=== PATIENT | female | born 1995 | race Caucasian/White ===

== ENCOUNTER 2019-09-29 16:44 | Emergency (ER) | payer SELFPAY ==
[2019-09-29 16:45] VITALS: BP 127/80; PULSE 75; RESP 14; TEMP 36.6; O2SAT 100; BMI 24.9
--- NOTE | 2019-09-29 17:39 | ED.VIS.LOWEX ---
History of Present Illness Chief Complaint: Lower Extremity Injury Informant: Patient Onset: Days - 4 Context: Gradual Onset Timing: Continuous Quality of Pain: - - sore Location: right great toe Current Severity: Severe Maximum Severity: Severe Worsened by: walking, palpation Relieved by: leaving alone Associated Symptoms: Negative for: Parasthesia, Weakness, Loss of Funtion Narrative: Feels like he has an ingrown toenail that is now getting infected. Never had this before. Purulent discharge. No injury. No systemic symptoms or fevers. Not a diabetic or having any other medical problem history. Past Medical History - Allergies and Home Meds Allergies/Adverse Reactions: Allergies No Known Allergies Allergy (Verified 09/29/19 16:45) Primary Care Physician: Joaquina Farooq DPM [STAFF PHYSICIAN] - 3-5 Days Past Medical History: None Lives: Alone Smoking Status: Unknown if ever smoked Review of Systems General: Denies: Chills, Fever, Sweats Musculoskeletal: Reports: Extremity Pain. Denies: Swelling Skin: Reports: Abscess, Wounds. Denies: Rash Physical Exam Vital Signs/Narrative: Vital Signs Temp Pulse Resp BP Pulse Ox 09/29/19 16:45 97.9 F 75 14 127/80 H 100 Inital Vital Signs reviewed: Yes - Extremity Exam Right Toe: - - At the peroneal aspect of the great right toenail, there is a small paronychia, there is purulent discharge able to be expressed and small amounts. It is mildly swollen, there is no pointing, there is no felon at the pad. Lateral aspect of the distal toe is tender. The nail is relatively small compared to the size of the toe, it may be ingrown, but looks similar at the tibial aspect except for the lack of infection there. All of the other toes and foot are normal-appearing, there is no lymphangitis. General: Well nourished, Well developed, - - nad Skin: Normal color, No rash, - - Erythema and tenderness to the peroneal aspect of the right great toenail Neurological: Alert, Oriented x3, Cranial nerves II-XII grossly intact, Normal Strength, Normal Sensation, Normal Gait Psychological: Normal affect, Normal Mood Diagnostic/Tx/Re-eval - Medical Decision Making See the procedure note for incision and drainage and excision of the ingrown toenail, a very small sliver of it was removed. I do not think she needs systemic antibiotics for this, it is very small limited paronychia that should be adequately treated topically. See the discharge instructions for details, she was referred to podiatry. Procedures Procedure(s): Paronychia incision and drainage --prepped with isopropanol and performed digital block of the right great toe with a total of 6 cc of plain 1% lidocaine. Good anesthesia was obtained. Prepped paronychia with chlorhexidine, incised along the side of the nail with a #11 blade and probed the cavity bluntly and gently with scissors, small amount of purulent material was expressed and a small amount of bleeding. The cavity is limited and does not protrude to the plantar aspect of the toe, or to the base of the nail/cuticle, or beneath the nail. Ingrown toenail excision --while anesthetized as above, the edge of the peroneal aspect of the right great toenail was excised and discarded. The nailbed was left intact. ED Disposition - Plan for ED Patient: Disposition: Home or Assisted Living Diagnosis: Paronychia of great toe, right, Ingrown toenail of right foot with infection Instructions: Paronychia Referrals: Joaquina Farooq DPM [STAFF PHYSICIAN] - 3-5 Days Additional Instructions: Perform hot-warm soapy soaks to the affected area 2-3 times daily until no discharge or bleeding. Pat dry after 15 minutes or so, and place a fresh clean dressing with antibiotic ointment. If getting worse or seeing red streaking up your foot/leg, return to ER or follow-up with the b2b sales consultant to whom you are referred.
[2019-09-29] MEDS: Smz/Tmp Ds Tablet 1 TABLET PO (17:45)
[2019-09-29] MEDS: Cephalexin 500 MG Capsule PO (17:45)
[2019-09-29 20:12] VITALS: RESP 18
== END 2019-09-29 20:15 | disposition home or self-care (01) ==
PROVIDERS: Emergency Provider Emergency Medicine
DX: L60.0 Ingrowing nail (principal); L03.031 Cellulitis of right toe
CPT/HCPCS: 10060; 11750; 99283

== ENCOUNTER 2019-10-18 07:42 | Emergency (ER) | payer SELFPAY ==
[2019-10-18 07:42] VITALS: BP 129/94; PULSE 92; RESP 16; TEMP 36.6; O2SAT 99; BMI 25.3
--- NOTE | 2019-10-18 07:51 | ED.VIS.GEN ---
History of Present Illness Chief Complaint: Cellulitis Detail of Chief Complaint: Right eyelid swelling, dental pain Onset: Yesterday Context: Sudden Onset Timing: Continuous Quality: Pain Location: Right side of face and right jaw Current Severity: Mild Maximum Severity: Severe Worsened by: Opening closing her mouth, applying pressure to her face Relieved by: Nothing Associated Symptoms: No ocular symptoms, no constitutional symptoms, no trismus Narrative: Patient is a 24-year-old female who presents because of dental pain and swelling of her face and right upper eyelid. States symptoms started yesterday. She denies fever, chills night sweats. She denies blurred vision, change in vision or double vision. She denies photophobia. She denies pain with movement of her eye. She denies rhinorrhea, congestion or postnasal drainage. She denies sore throat. She does complain of dental pain. She states she has several teeth that are painful. She does have intolerance to cold. She denies difficulty opening or closing her mouth completely. She denies change in voice. There is no history rheumatic fever, heart murmur, SBE or being immune suppressed. Eyelashes were not matted together this morning nor did she have any drainage. Prior similar symptoms: No Recent Illness/Hospitalization: No - Past Medical History (1) No significant past medical history Status: Acute Past Medical History - Allergies and Home Meds Allergies/Adverse Reactions: Allergies No Known Allergies Allergy (Verified 10/18/19 07:46) Primary Care Physician: Care Physician,No Primary [Primary Care Provider] - Prior records reviewed: No Past Medical History: None Surgical History: no surgical history Lives: Alone Smoking Status: Unknown if ever smoked Alcohol: None Drugs: None Review of Systems General: Denies: Chills, Fever, Subjective, Sweats Eyes: Denies: Visual changes - bilaterally, Blurred Vision - bilaterally, Diplopia ENT: Denies: Bilateral ear pain, Rhinorrhea, Sore throat Cardiovascular: Denies: Chest pain, Palpitations Respiratory: Denies: Dyspnea, Cough, Dyspnea on exertion Gastrointestinal: Denies: Nausea, Vomiting Musculoskeletal: Denies: Myalgias, Arthralgias, Neck pain, Back pain Skin: Denies: Rash, Wounds Neurological: Denies: Headache, Weakness Physical Exam Vital Signs/Narrative: Vital Signs Temp Pulse Resp BP Pulse Ox 10/18/19 07:42 97.9 F 92 16 129/94 H 99 Inital Vital Signs reviewed: Yes General: Well nourished, Well developed, No Acute Distress Head: Normocephalic, Atraumatic, - - Face is asymmetric. There is swelling of the right upper eyelid and right maxillary region. Eyes: Perrl, EOMI, - - Conjunctive is injected on the right. The upper eyelid is edematous erythematous and findings are consistent with hordeolum.. Negative for: Pale conjunctiva, Scleral icterus ENT: Moist mucous membranes, No rhinorrhea, TM's clear, - - No evidence of Lucho's angina. There is no trismus.. Negative for: Nasal congestion, Sinus tenderness Neck: Supple, Nontender, No lymphadenopathy, No JVD, - - Trachea is midline. There is no inspiratory expiratory stridor. Cardiovascular: Regular rate, Regular rhythm, No murmurs, Normal S1, Normal S2 Respiratory: No distress, CTA bilaterally Skin: No Trauma, Rash - There is slight darkening erythema of the right upper eyelid.. Negative for: Normal color, No rash, Cyanosis, Diaphoresis, Jaundice Neurological: Alert, Oriented x3, Cranial nerves II-XII grossly intact, Normal Strength, Normal Sensation Psychological: Normal affect, Normal Mood Diagnostic/Tx/Re-eval - Medical Decision Making Patient has hordeolum. There is evidence of conjunctivitis. Will treat with ophthalmic antibiotic medication. She was treated with NSAID and penicillin for her dental pain. There is evidence of dental caries. She was informed that she needs to see a dentist to have dental x-rays. Should she is uninsured she was referred to the [facility] ED Disposition - Plan for ED Patient: Disposition: Home or Assisted Living Diagnosis: Hordeolum internum of right upper eyelid, Pain due to dental caries Instructions: When Your Child Has a Stye, Sty, Dental Pain Prescriptions: Ciprofloxacin 0.3% [Ciloxan] 1 drp RIGHT EYE Q2H #1 bottle Transmission Status: Pending to [facility] Ibuprofen [Ibu] 800 mg PO TID #15 tab Transmission Status: Pending to [facility] Penicillin V Potassium 500 mg PO 4X/DAY #40 tab Transmission Status: Pending to [facility] Referrals: Care Physician,No Primary [Primary Care Provider] - Lakesha Carlson [NON-STAFF] - 5-7 Days
[2019-10-18 08:03] VITALS: BP 129/94; PULSE 92; RESP 16; TEMP 36.6; O2SAT 99
[2019-10-18] MEDS: Acetaminophen 325 MG Tablet 1000 MG PO (08:09)
[2019-10-18] MEDS: Ibuprofen 400 MG Tablet 800 MG PO (08:10)
[2019-10-18] MEDS: Penicillin Vk 250 MG Tablet 500 MG PO (08:10)
== END 2019-10-18 08:24 | disposition home or self-care (01) ==
PROVIDERS: Emergency Provider Emergency Medicine
DX: H00.021 Hordeolum internum right upper eyelid (principal); K02.9 Dental caries, unspecified
CPT/HCPCS: 99284

== ENCOUNTER 2020-12-27 14:35 | Emergency (ER) | payer MEDICAID, SELFPAY ==
[2020-12-27 14:36] VITALS: BP 123/89; PULSE 91; RESP 16; TEMP 36; O2SAT 100; BMI 27.2
--- NOTE | 2020-12-27 15:19 | CT_ITS ---
STUDY: CT BRAIN WITHOUT CONTRAST REASON FOR EXAM: Female, 25 years old. head injury, headache RADIATION DOSAGE (If Supplied By Facility): CTDIvol = ( 38.43 ) mGy, DLP = ( 669.46 ) mGycm TECHNIQUE: Transaxial CT imaging of the brain was performed without administration of intravenous contrast material. Individualized dose optimization techniques were used for this CT. COMPARISON: No relevant priors. FINDINGS: Normal soft tissue structures. Normal calvarium. Normal size ventricles and extra-axial spaces for the patient''s age. Normal white matter tracts of the cerebral hemispheres. Normal basal ganglia and thalami. Normal brainstem. Normal cerebellum. There is no intracranial hemorrhage. There are no findings of an acute ischemic infarction. Normal visualized paranasal sinuses. CT/Brain/Head without Contrast IMPRESSION: Normal unenhanced CT scan of the brain. Electronically Signed: Mic Negrete MD at 16:37 EDT Tel , Service support ,
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
== END 2020-12-27 16:54 | disposition home or self-care (01) ==
PROVIDERS: Emergency Provider Emergency Medicine
DX: S06.0X9A Concussion with loss of consciousness of unspecified duration, initial encounter (principal); S63.634A Sprain of interphalangeal joint of right ring finger, initial encounter; Y04.0XXA Assault by unarmed brawl or fight, initial encounter; Y93.89 Activity, other specified; Y92.89 Other specified places as the place of occurrence of the external cause; Y99.9 Unspecified external cause status
CPT/HCPCS: 70450; 73140; 99282; A4216

== ENCOUNTER → 2021-04-27 13:49 | Outpatient (CLI) | payer MEDICAID, SELFPAY ==
[2021-04-27 14:39] LABS: AST(SGOT) 17 U/L (15-37); Alanine Aminotransfer ALT/SGPT 20 U/L (13-56); Albumin, Serum 3.7 g/dL (3.2-5.0); Alkaline Phosphatase 81 U/L (45-117); Bilirubin, Direct 0.13 mg/dL (0.00-0.30); Globulin 4.2 g/dL (2.2-4.2); Protein, Total 7.9 g/dL (6.4-8.2)
[2021-04-27 15:24] LABS: Hepatitis B Surface Antigen Non-Reactive (Nonreactive); Hepatitis C Antibody Non-Reactive (Nonreactive)
== END ==
PROVIDERS: PCP Nurse Practitioner Family
DX: R63.0 Anorexia (principal); R53.81 Other malaise; R11.0 Nausea
CPT/HCPCS: 36415; 80076; 86803; 87340

== ENCOUNTER 2021-06-19 09:54 | Emergency (ER) | payer MEDICAID, SELFPAY ==
[2021-06-19 09:55] VITALS: BP 106/82; PULSE 116; RESP 22; TEMP 36.6; O2SAT 93; BMI 31.1
--- NOTE | 2021-06-19 10:20 | EKG12_ITS ---
Test Reason : SOB Blood Pressure : / mmHG Vent. Rate : 092 BPM Atrial Rate : 092 BPM P-R Int : 132 ms QRS Dur : 096 ms QT Int : 346 ms P-R-T Axes : 051 004 012 degrees QTc Int : 427 ms Normal sinus rhythm Normal ECG Confirmed by JACK CASTELLON, AFSHAN ([id number]), story editor ANTOINETTE RADER ([id number]) on 06/20/2021 2:05:27 PM Referred By: SORIN Confirmed By:AFSHAN SANTIAGO MD
--- NOTE | 2021-06-19 10:29 | EX.ED.DYSGE1 ---
HPI History of Present Illness Chief Complaint: Weakness Informant: patient Narrative Narrative: Patient presents with weakness. Covid symptoms starting least 2 weeks ago. Reports headache myalgia's cough, intermittent fevers. Denies loss of taste or smell. Diarrhea a week ago. Tolerating oral fluids. Over the past 4 days increasing cough. States that a couple cough induced syncopal episodes. No chest pains. No dyspnea. Patient nonvaccinated. No Covid infections in the past. Denies sick contacts however states her child is currently also sick. History of anxiety depression. Prior similar symptoms: No PFSH PFSH Home Medications dexamethasone 6 mg PO DAILY #9 tab 06/19/21 [Rx Last Taken Unknown] trazodone 50 mg PO QHS 06/19/21 [History Last Taken Unknown] Allergy/AdvReac Type Severity Reaction Status Date / Time No Known Allergies Allergy Verified 06/19/21 09:55 Surgical History History of tonsillectomy History of tubal ligation Social History Smoking Status: Never smoker ROS ROS ED Constitutional Constitutional ED: Reports fever(s); Denies chills or sweats Eyes Eyes: Denies change in vision ENT ENT ED: Denies dysphagia or sore throat Cardiovascular Cardiovascular: Denies chest pain, leg edema, palpitations or racing heartbeat Respiratory/Chest Respiratory/Chest: Reports cough; Denies dyspnea on exertion Gastrointestinal Gastrointestinal: Reports diarrhea; Denies abdominal pain, nausea or vomiting Genitourinary Genitourinary ED: Denies dysuria, hematuria or urinary frequency Musculoskeletal Musculoskeletal: Reports myalgias; Denies back pain, extremity pain or neck pain Integumentary Denies rash or wounds Neurologic Neurologic: Reports headache(s) and weakness; Denies paresthesias EXAM Physical Exam Const Vital Signs: 06/19/21 09:55 06/19/21 10:34 06/19/21 13:01 Temperature 97.9 F Temperature Source Temporal Pulse Rate 116 H 113 H Respiratory Rate 22 H 18 Respiratory Effort Normal Respiratory Pattern Normal Blood Pressure 106/82 H Blood Pressure Mean 90 Pulse Ox 93 97 Oxygen Delivery Method Room Air Positive well nourished and well developed General Appearance ED: well developed and NAD HEENT HEENT Narrative: Mild dry mucosal membranes normocephalic and atraumatic Eyes PERRL, EOMs intact bilaterally and conjunctivae normal General Eye ED: Yes normal appearance of both eyes Neck no lymphadenopathy and supple Neck Narrative: No meningismus General: Negative for tenderness Chest Wall Chest: Negative for tenderness Resp normal respiratory effort and normal air movement Effort and Inspection: symmetric chest movement; Negative for respiratory distress Cardio regular rate and no murmurs Rate: tachycardic Peripheral Pulses: pulses 2+ throughout GI normal to inspection, nondistended, normoactive bowel sounds and non-tender Palpation: Negative for guarding or rebound tenderness present Back/Spine no CVA tenderness and no thoracic nor lumbar tenderness Extremity normal to inspection General Extremety ED: Negative for edema or tenderness General Extremity: Negative for edema Neuro oriented x3, CN's II-XII intact bilaterally and no sensory deficits noted Sensorium / Orientation: awake and alert Skin no rashes or lesions noted and no wounds MDM MDM MDM Narrative Medical decision making narrative: Patient history concerning for Covid. She is tachycardic on exam with dry mucosal membranes. Pulse ox 93% on arrival. Covid testing positive. Labs white count 4.2 hemoglobin 13. Potassium 3.3. Creatinine 0.63. hCG negative. She is history noting cough induced syncope. Her EKG with nonspecific findings. Neurologically intact. Potassium was replaced orally due to her syncopal episode. Pulse ox 93% she was started on dexamethasone. She is 15 days and the symptoms she is not a candidate for antibiotic treatment. She was ambulated pulse ox remained 95 to 97%. Discussed with patient picking up pulse oximeter monitoring her pulse ox. Chest x-ray bilateral infiltrates consistent with her Covid infection. Return precautions discussed. All questions were answered. Patient is being discharged under pandemic conditions under declared global, national and state disaster activation, with limited medical resources. Patient and community understands this. Results discussed in layman's terms to the patient satisfaction. All questions answered in layman's terms. Patient understands importance of follow-up care as directed. Patient has been instructed to return to the ED immediately if new symptoms, problems, or questions occur. We mutually agree with the plan of disposition. The patient understand that they may call or return with any questions or concerns at any time. Lab Data Attestation: I reviewed the patient's lab results. Labs: Laboratory Results - last 24 hr 06/19/21 06/19/21 06/19/21 10:30 10:30 10:30 WBC 4.2 L RBC 4.38 Hgb 13.1 Hct 37.9 MCV 86.5 MCH 29.9 MCHC 34.6 RDW Std Deviation 41.1 RDW Coeff of Wen 13.1 Plt Count 209 MPV 9.0 Immature Gran % (Auto) 0.500 Neut % (Auto) 66.4 Lymph % (Auto) 27.9 [place] % (Auto) 5.2 Eos % (Auto) 0.0 Baso % (Auto) 0.0 Absolute Neuts (auto) 2.8 Absolute Lymphs (auto) 1.17 Nucleated RBC % 0 Sodium 138 Potassium 3.3 L Chloride 103 Carbon Dioxide 28.0 Anion Gap 7 BUN 13 Creatinine 0.63 Estim Creat Clear Calc 130.44 Est GFR (MDRD) Af Amer 145 Est GFR (MDRD) Non-Af 120 BUN/Creatinine Ratio 20.6 H Glucose 95 Calcium 8.6 Total Bilirubin 0.20 AST 44 H ALT 37 Alkaline Phosphatase 54 Total Protein 7.9 Albumin 3.1 L Globulin 4.8 H Albumin/Globulin Ratio 0.6 L Serum , Qual NEGATIVE Radiography Chest X-Ray - ED: 1 View, Read by ED Physician and Read by Radiologist Diagnostic Testing: Clinical Impression(s) from Imaging Studies Chest X-Ray 06/19/21 11:00 IMPRESSION: Bibasilar patchy airspace disease (potential early infection) Electronically Signed: Sanjay Villafana DO at 11:08 EST Tel , Service support , EKG Initial EKG: Attestation: I personally reviewed and interpreted this EKG as follows: Comments: Sinus rhythm 92, no ST changes. T wave inversion in leads III. Nonspecific. QTc 427. Discharge Plan Triage Chief Complaint: Weakness ED Provider: William Guzman Dx/Rx/DC Orders Clinical Impression: Pneumonia due to 2019-nCoV, Syncope, Acute hypokalemia Instructions: Coronavirus Disease 2019 (COVID-19): Caring for Yourself or Others, ED Fainting, Vagal Reaction Prescriptions: New dexamethasone 6 mg tablet 6 mg PO DAILY Qty: 9 RF: 0 No Action trazodone 50 mg tablet 50 mg PO QHS RF: 0 Primary Care Provider: Care Physician,No Primary Referrals: Melida Fonseca MD [STAFF PHYSICIAN] - 5-7 Days Care Physician,No Primary [Primary Care Provider] - Disposition Disposition: Home, Self Care
[2021-06-19] MEDS: 0.9% Normal Saline 1,000 ML 1000 ML IV (10:36)
--- NOTE | 2021-06-19 10:38 | NURSING ---
NO OLD EKGS
[2021-06-19 10:46] LABS: Absolute Lymphocyte Count 1.17 X10^3/uL (0.83-4.51); Absolute Neutrophil Count 2.8 X10^3/uL (2.0-7.7); Hematocrit 37.9 % (37-47); Hemoglobin 13.1 g/dL (12.0-15.0); Lymphocyte # 1.17 X10^3/ul (0.83-4.51); Lymphocyte % 27.9 % (19-41); Mean Corp Hgb Conc 34.6 g/dL (32-36); Mean Corpuscular Hgb 29.9 pg (27.0-32.0); Mean Corpuscular Volume 86.5 fL (81-99); Monocyte# 0.22 X10^3/uL; Monocyte% 5.2 % (0-10); NRBC Flagged by Analyzer 0 % (0-5); Neutrophil # 2.79 X10^3/uL (2.7-7.7); Neutrophil % 66.4 % (47-70); Platelet Count 209 K/mm3 (150-450); RBC Distribution Width CV 13.1 % (11.6-14.6); RBC Distribution Width SD 41.1 fl (35.1-43.9); Red Blood Count 4.38 M/mm3 (4.2-5.4); White Blood Count 4.2 K/mm3 (4.4-11.0)
--- NOTE | 2021-06-19 11:00 | RAD_ITS ---
STUDY: X-RAY CHEST REASON FOR EXAM: Female, 25 years old. cough TECHNIQUE: Single AP portable view of the chest. COMPARISON: None. FINDINGS: Cardiac silhouette unremarkable. Pulmonary vascularity unremarkable. Aorta unremarkable. Bibasilar patchy airspace disease. No pleural effusions. Upper abdomen unremarkable. Osseous structures intact. No pneumothorax. RAD/Chest 1 View (Portable) IMPRESSION: Bibasilar patchy airspace disease (potential early infection) Electronically Signed: Sanjay Villafana DO at 11:08 EST Tel , Service support ,
[2021-06-19 11:01] LABS: ALB/GLOB Ratio 0.6 RATIO (0.9-2.4); AST(SGOT) 44 U/L (15-37); Alanine Aminotransfer ALT/SGPT 37 U/L (13-56); Albumin, Serum 3.1 g/dL (3.2-5.0); Alkaline Phosphatase 54 U/L (45-117); Anion Gap 7 (5-15); BUN 13 mg/dL (7-18); BUN/Creat Ratio 20.6 RATIO (10-20); Calcium,Total 8.6 mg/dL (8.5-10.1); Chloride 103 mmol/L (98-107); Creatinine, Serum 0.63 mg/dL (0.55-1.02); EST Glomerular Filtration Rate 120 mL/min (>60); Est Glom Filt Rate - Afr Amer 145 mL/min (>60); Estimated Creatinine Clearance 130.44 ml/min; Globulin 4.8 g/dL (2.2-4.2); Glucose 95 mg/dL (74-106); Potassium 3.3 mmol/L (3.5-5.1); Protein, Total 7.9 g/dL (6.4-8.2); Sodium Level 138 mmol/L (136-145)
[2021-06-19 11:11] LABS: Internal QC Validated? YES +Cl - CLEAR BKGD
[2021-06-19 11:12] LABS: Pregnancy, Serum, hCG Quali. NEGATIVE Negative
[2021-06-19] MEDS: Potassium Chloride Oral Tablet 20 MEQ 40 MEQ PO (12:58)
[2021-06-19] MEDS: dexAMETHasone 4 MG Tablet 6 MG PO (12:58)
[2021-06-19 13:01] VITALS: PULSE 113; RESP 18; O2SAT 95; O2SAT 97
[2021-06-19 14:34] VITALS: BP 106/78; PULSE 94; RESP 22; O2SAT 96
--- NOTE | 2021-06-19 14:34 | ED.RN ---
THIS NURSE REVIEWED D/C INSTRUCTIONS WITH PT. PT VERBALIZED UNDERSTANDING OF INSTRUCTIONS. IV D/C. IV CATHETER INTACT. PT TOLERATED WELL. PT DENIES FURTHER NEEDS OR QUESTIONS AT THIS TIME. PT AMBULATES FROM ROOM ON OWN WITHOUT ASSISTANCE FROM STAFF
== END 2021-06-19 14:36 | disposition home or self-care (01) ==
PROVIDERS: Emergency Provider Emergency Medicine
DX: U07.1 COVID-19 (principal); J12.82 Pneumonia due to coronavirus disease 2019; E87.6 Hypokalemia; R55 Syncope and collapse; F41.8 Other specified anxiety disorders; Z79.899 Other long term (current) drug therapy
CPT/HCPCS: 71045; 80053; 84703; 85025; 87426; 93005; 96360; 96361; 99283; J7030

== ENCOUNTER 2024-09-15 08:55 | Emergency (ER) | payer MEDICAID, SELFPAY ==
[2024-09-15 08:56] VITALS: BP 132/93; PULSE 96; RESP 16; TEMP 36.9; O2SAT 100; BMI 31.3
--- NOTE | 2024-09-15 09:15 | EX.ED.DYSGE1 ---
HPI History of Present Illness Chief Complaint: Fever Informant: patient Onset/Context/Timing Onset: Today Context: Gradual Onset Timing: Continuous Quality: Aching Location: Generalized Worsened by: Nothing Relieved by: Nothing Narrative Narrative: Patient presents with fever, cough, congestion, and bodyaches that has been getting worse over the past 3 days. Patient states she feels achy all over. Patient admits to a fever of 100.1 at home. Patient admits to sore throat and rhinorrhea. Patient admits to a cough but denies any sputum. Patient denies any nausea or vomiting. Patient denies any dysuria or hematuria. Patient states other family members have been diagnosed with influenza recently. PFSH PFS Home Medications ?Medication ?Instructions ?Recorded ?Last Taken ?Type dexamethasone 6 mg tablet 6 mg PO DAILY #9 tabs 06/19/21 Unknown Rx trazodone 50 mg tablet 50 mg PO QHS 06/19/21 Unknown History Allergy/AdvReac Type Severity Reaction Status Date / Time No Known Allergies Allergy Verified 06/19/21 09:55 Surgical History History of tubal ligation History of tonsillectomy Social History Smoking Status: Never smoker ROS ROS ED Constitutional Constitutional ED: Reports fever(s); Denies chills Eyes Eyes: Denies blurry vision or change in vision ENT ENT ED: Reports rhinorrhea and sore throat Cardiovascular Cardiovascular: Denies chest pain or palpitations Respiratory/Chest Respiratory/Chest: Reports cough; Denies dyspnea Gastrointestinal Gastrointestinal: Reports abdominal pain; Denies nausea or vomiting Genitourinary Genitourinary ED: Denies dysuria or hematuria Musculoskeletal Musculoskeletal: Denies back pain or neck pain Integumentary Denies abscess or rash Neurologic Neurologic: Denies headache(s) or weakness Allergic/Immunologic Allergic/Immunologic ED: Denies mouth swelling or urticaria EXAM Physical Exam Const Vital Signs: 09/15/24 08:56 Temperature 98.5 F Temperature Source Oral Pulse Rate 96 Respiratory Rate 16 Blood Pressure 132/93 H Blood Pressure Mean 106 Pulse Ox 100 Oxygen Delivery Method Room Air Positive well nourished and well developed General Appearance ED: well developed and NAD HEENT Reports moist mucous membranes Neck supple and no JVD Resp normal respiratory effort and clear to auscultation bilaterally GI non-tender and non-distended Palpation: soft Neuro oriented x3, CN's II-XII intact bilaterally and no sensory deficits noted Sensorium / Orientation: alert Motor Exam: strength 5/5 throughout Psych mental status grossly normal MDM MDM MDM Narrative Medical decision making narrative: Differential diagnosis includes pneumonia, bronchitis, and viral upper respiratory infection. Chest x-ray will be obtained to assess for pneumonia and bronchitis. COVID-19, influenza, and RSV PCR will be obtained to assess for viral illness. Lab Data Lab results narrative: COVID-19 PCR was reviewed and was negative. Influenza PCR was reviewed and was negative for influenza A and influenza B. RSV PCR was reviewed and was negative. Radiography Chest X-Ray - ED: 2 View, Read by ED Physician, Read by Radiologist and No Acute Disease Diagnostic Testing: PA and lateral chest x-ray was obtained. There are 2 views. On my independent interpretation, lung kaminski are clear. There is normal cardiac silhouette. Bony thorax is normal. There is no acute process noted. Radiologist also interpreted the x-ray and agrees. Treatment and Re-Evaluation :: Patient was advised of her findings. Patient was advised that this is most likely a viral upper respiratory infection. Patient was instructed to drink plenty of fluids. Patient was instructed to take Tylenol or ibuprofen as needed for any pain or fevers. Patient was instructed to follow-up with her primary care physician in 5 to 7 days. Patient understood and was agreeable with plan. All questions were answered. Discharge Plan Triage Chief Complaint: Fever ED Provider: Sanjay Oshea Dx/Rx/DC Orders Clinical Impression: Viral upper respiratory tract infection, Nicotine vapor product user Instructions: ED URI, Viral, No Abx (Adult) Prescriptions: No Action trazodone 50 mg tablet 50 mg PO QHS dexamethasone 6 mg tablet 6 mg PO DAILY Qty: 9 0RF Primary Care Provider: Care Physician,No Primary Referrals: Care Physician,No Primary [Primary Care Provider] - Print Language: Kyrgyz Disposition Disposition: Home, Self Care
--- NOTE | 2024-09-15 09:40 | RAD_ITS ---
PROCEDURE: CHEST PA AND LATERAL REASON FOR EXAM: Cough. TECHNIQUE: Frontal and lateral views of the chest. COMPARISON: Comparison is made with prior study dated June 19, 2021. FINDINGS: Pectus excavatum deformity. The heart size is normal. The mediastinal contour is unremarkable. The lungs are clear. The bones are unremarkable. RAD/Chest PA and Lateral IMPRESSION: NEGATIVE CHEST Reading Location: [facility]
[2024-09-15 10:56] VITALS: BP 120/78; PULSE 87; RESP 16; TEMP 36.8; O2SAT 98
--- NOTE | 2024-09-15 14:15 | CM.ED ---
Social Work Reason for visit: No PCP Patient verified that she currently does not have a PCP, states she just moved back to the area and has not had time to find a doctor. [facility] provider list given to patient. No further needs identified at this time. Sonal Mendosa, [employer] BASKET MAKER HELPER, CLINICAL RESEARCH NURSE COORDINATOR
== END 2024-09-15 13:21 | disposition home or self-care (01) ==
PROVIDERS: Emergency Provider Emergency Medicine; Visit Provider Emergency Medicine
DX: J06.9 Acute upper respiratory infection, unspecified (principal); F17.290 Nicotine dependence, other tobacco product, uncomplicated
CPT/HCPCS: 71046; 87631; 99282

== ENCOUNTER 2025-03-11 20:58 | Emergency (ER) | payer OTHER, SELFPAY ==
[2025-03-11 21:03] VITALS: BP 135/77; PULSE 89; RESP 18; TEMP 36.9; O2SAT 98; BMI 32.5
--- NOTE | 2025-03-11 22:13 | EX.ED.GENINJ ---
HPI History of Present Illness Chief Complaint: Laceration Narrative Narrative: Patient is a 29-year-old female with no known significant past medical history who presented to the emergency department the chief complaint of her left middle finger was smashed at work. States that this occurred around 8:40 PM. She states that she does not know when her last tetanus shot was. Patient notes that she has not take anything for pain yet. PFSH PFSH Home Medications ?Medication ?Instructions ?Recorded ?Last Taken ?Type dexamethasone 6 mg tablet 6 mg PO DAILY #9 tabs 06/19/21 Unknown Rx trazodone 50 mg tablet 50 mg PO QHS 06/19/21 Unknown History cephalexin 500 mg capsule 500 mg PO BID 7 days #14 caps 03/12/25 Unknown Rx ondansetron 4 mg disintegrating 4 mg PO Q6H PRN nausea and 03/12/25 Unknown Rx tablet vomiting #20 tabs oxycodone-acetaminophen 5 mg-325 1 tab PO Q6H PRN pain 3 days #12 03/12/25 Unknown Rx mg tablet (Endocet) tabs Allergy/AdvReac Type Severity Reaction Status Date / Time No Known Allergies Allergy Verified 03/11/25 21:06 Surgical History History of tubal ligation History of tonsillectomy Social History Smoking Status: Never smoker ROS ROS ED ROS Narrative Neurological: Denies any numbness, wheeze, tingling Musculoskeletal: Complains of left middle finger pain Skin: Complains of bleeding coming from her finger EXAM Physical Exam Narrative Exam Narrative: General: Patient was lying in bed rest comfortably did not appear to be acute distress Head: Atraumatic, normocephalic Eyes: PERRL bilaterally, EOMI Black no conjunctival injection noted Neck: Soft, supple, trachea midline Cardiovascular: Regular rate Extremities: Radial pulses +2/4 in the bilateral extremities, +5/5 strength noted in the bilateral. Lower extremities patient able to fully flex and extend all her digits in the left hand. Neurological: Patient functioning as if she was at [facility] year is 2024 sensation grossly intact in the median, ulnar and radial nerve distribution bilaterally Skin: Patient has some mild bleeding coming from her left middle finger underneath her nailbed. Const Vital Signs: 03/11/25 21:03 Temperature 98.4 F Temperature Source Temporal Pulse Rate 89 Respiratory Rate 18 Blood Pressure 135/77 H Blood Pressure Mean 96 Pulse Ox 98 Oxygen Delivery Method Room Air MDM MDM MDM Narrative Medical decision making narrative: Patient is a 29-year-old female who presented to the emergency department chief complaint of crush injury to the left middle finger. On the differential diagnosis includes but not limited to nailbed laceration, open fracture, tuft fracture. Once the workup is obtained reviewed she will be reevaluated. Patient's tetanus shot will be updated. There is suspected open fracture therefore she was given 2 g Ancef prior to imaging performed Patient x-ray obtained reviewed showed acute nondisplaced fracture of the left third distal phalanx tuft. Patient had laceration repaired here in the emergency department see procedure note for separate details however this was a open fracture nailbed was repaired. Patient was advised to follow-up with the plastic surgeon there she was referred to watch out for signs infection if this is to occur she was encouraged to return with worsening symptoms or any other concerns. Patient be given prescription for Keflex as well. She will be given prescription for Endocet and Zofran for severe pain otherwise she is to rotate Tylenol and Motrin for mild to moderate pain. She is agreeable to this plan all question concerns answered she was discharged home in stable condition. Radiography Diagnostic Testing: Clinical Impression(s) from Imaging Studies Hand X-Ray 03/11/25 22:16 IMPRESSION: Acute nondisplaced fracture of the left 3rd distal phalanx tuft. Reading Location: [id number] Discharge Plan Triage Chief Complaint: Laceration ED Provider: Guillermo Sim Dx/Rx/DC Orders Clinical Impression: Open fracture of tuft of distal phalanx of finger, Nailbed laceration, finger, Finger pain Prescriptions: New oxycodone-acetaminophen [Endocet] 5-325 mg tablet 1 tab PO Q6H PRN (Reason: pain) 3 Days Qty: 12 0RF ondansetron 4 mg tablet,disintegrating 4 mg PO Q6H PRN (Reason: nausea and vomiting) Qty: 20 0RF cephalexin 500 mg capsule 500 mg PO BID 7 Days Qty: 14 0RF No Action trazodone 50 mg tablet 50 mg PO QHS dexamethasone 6 mg tablet 6 mg PO DAILY Qty: 9 0RF Primary Care Provider: Care Physician,No Primary Referrals: Favio Vazquez MD [Med Staff - Active Staff] - Care Physician,No Primary [Primary Care Provider] - Hien Gonzalez Zeinab, DISPUTE RESOLUTION ANALYST-C [[facility]] - Activity Restrictions/Additional Instructions: Do not soak your finger. Take antibiotics as prescribed. Follow-up with the plastic surgeon they referred to Dr. Vazquez. If there is pus coming from your finger or your whole finger becomes very red swollen and painful you need to return the emergency department immediately. Rotate Tylenol and ibuprofen [id number] for mild to moderate pain when you do this can take some every 3 hours for pain max dose Tylenol in 24 hours 4000 mg. Max dose of ibuprofen in 24 hours 3200 mg. Return with worsening symptoms or any concerns. Take the Endocet and Zofran for severe pain do not operate anything under the influence of the Endocet. Print Language: Turkmen Disposition Disposition: Home, Self Care
--- NOTE | 2025-03-11 22:16 | RAD_ITS ---
PROCEDURE: LEFT HAND MIN 3 VIEWS 03/11/2025 REASON FOR EXAM: SMASHED FINGER TECHNIQUE: LEFT HAND MIN 3 VIEWS COMPARISON: None. FINDINGS: Acute nondisplaced fracture of the 3rd distal phalanx tuft. No additional acute fracture or dislocation. Preserved joint spaces. Normal bone mineralization. Mild soft tissue swelling and laceration injury to the tip of the 3rd digit. No radiopaque foreign body is seen. RAD/Hand Min 3 Views IMPRESSION: Acute nondisplaced fracture of the left 3rd distal phalanx tuft. Reading Location: [id number]
--- OUTSIDE RECORDS SUMMARY | 2025-03-11 22:21 | XMS RPT_ITS | CCD ---
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 headaches, syncope, paralysis, seizures or tremors EXAM: BP 112/70 Pulse 82 Temp 36.9 ?C (98.5 ?F) (Left Tympanic) Resp 14 Ht 165 cm (5' 4.96) Wt 86.2 kg (190 lb) BMI 31.66 kg/m? General Appearance: Well appearing, alert, in no acute distress, well-hydrated, well nourished. Obese Skin: bilateral LE has small tortuose veins present. Head: Normocephalic, no masses, lesions, tenderness or abnormalities. Eyes: Anicteric sclera. Pupils are equally round and reactive to light. Extraocular movements are intact. . Ears: External ears normal, canals clear. Nose/Sinuses: Nares normal, septum midline, mucosa normal, no drainage or sinus tenderness. Oropharynx: Lips, mucosa, and tongue normal, teeth and gums normal, oropharynx normal. Neck: Supple, no adenopathy; thyroid symmetric, normal size Lungs: Lungs clear to auscultation. No wheezing, rhonchi, rales.. Heart: RRR without murmur, gallop, or rubs. No ectopy. Abdomen: Normal abdominal exam, Abdomen soft, non-tender. Bowel sounds normal. No masses, organomegaly. Extremities: Pulses: 2+, Edema: Non-pitting edema . Health Maintenance List COVID-19 VACCINE(1) Never done HEPATITIS C SCREENING Never done HIV SCREENING Never done DTAP,TDAP,T (more content not included)... Normal [facility] [id number] Ag +HIV12 Abon 01-26 HIV 12 Ag/Ab Non-Reactive Normal Non Reactive [facility] Comment on above: Performed By: #### C BCDIF, AHCV1B, BMP, LIPNF, TSH, HIV12C #### [facility] [address] [address] HIV-1/2 Antibody Normal [facility] Comment on above: Result Comment: Test Not Indicated Negative No evidence of HIV-1 or HIV-2 infection. Should recent infection be suspected, repeat testing may be considered 2-3 weeks after this draw. HIV Information: [place] Rev. Code 3701.243(E): This information has been disclosed to you from confidential records protected from disclosure by state law. You shall make no further disclosure of this information without the specific, written, and informed release of the individual to whom it pertains or as otherwise permitted by state law. A general authorization for the release of medical or other information is not sufficient for the purpose of the release of HIV test results or diagnoses. Performed By: #### C BCDIF, AHCV1B, BMP, LIPNF, TSH, HIV12C #### [facility] [address] [place], [place] [address] Hep C Ab IA w/Confon 021 Hepatitis C Ab IA Negative Normal Negative [facility] Comment on above: Performed By: #### C BCDIF, AHCV1B, BMP, LIPNF, TSH, HIV12C #### [id number] [place], [place] [address] Lipid Panel, Nonfaston 01-26 Cholesterol [Mass/Vol] 150 mg/dL Normal <200 [facility] Comment on above: Result Comment: <200 mg/dL, Desirable 200-239 mg/dL, Borderline high >239 mg/dL, High Performed By: #### C BCDIF, AHCV1B, BMP, LIPNF, TSH, HIV12C #### [id number] [place] [id number] HDL Cholesterol, NF 69 mg/dL Normal >39 [facility] Comment on above: Result Comment: 40-5 9 mg/dL, Acceptable >59 mg/dL, High: Negative risk factor for coronary heart disease <40 mg/dL, Low: Positive risk factor for coronary heart disease Performed By: #### C BCDIF, AHCV1B, BMP, LIPNF, TSH, HIV12C #### [id number] [place], [place] [address] LDL Cholesterol, NF 71 mg/dL Normal <100 [facility] Comment on above: Result Comment: <100 mg/dL, Optimal 100-129 mg/dL, Near optimal/above optimal 130-159 mg/dL, Borderline high 160-189 mg/dL, High >189 mg/dL, Very high Secondary prevention optimal LDL Cholesterol levels are recommended to be < 70 mg/dL Performed By: #### C BCDIF, AHCV1B, BMP, LIPNF, TSH, HIV12C #### [id number] [place], [place] [address] LDL/HDL Ratio, NF 1.03 mg/dL Normal <2.54 [facility] Comment on above: Result Comment: [place] luis: 1. National Cholesterol Education Program ATP III Guideline At-A-Glance Quick Desk Reference: National Heart, Lung, and Blood [place]. National Institutes of Health. 2001: NIH Publication No. 01-3305. 2. An International Atherosclerosis Society position paper: global recommendations for the management of dyslipidemia: executive summary, Atherosclerosis. 2014: 232(2):410-413. Performed By: #### C BCDIF, AHCV1B, BMP, LIPNF, TSH, HIV12C #### [id number] [place] [address] Non HDL Chol, NF 81 mg/dL Normal <130 [facility] Comment on above: Result Comment: <130 mg/dL, Optimal 130-159 mg/dL, Near optimal/above optimal 160-189 mg/dL, Borderline high 190-219 mg/dL, High >219 mg/dL, Very high Secondary prevention optimal non HDL Cholesterol levels are recommended to be < 100 mg/dL Performed By: #### C BCDIF, AHCV1B, BMP, LIPNF, TSH, HIV12C #### [id number] [place] [address] T Chol/HDL Ratio NF 2.17 mg/dL Normal <5.10 [facility] Comment on above: Performed By: #### C BCDIF, AHCV1B, BMP, LIPNF, TSH, HIV12C #### [facility] [address] [address] Triglycerides, NF 48 mg/dL Normal <150 [facility] Comment on above: Result Comment: <150 mg/dL, Normal 150-199 mg/dL, Borderline high 200-499 mg/dL, High >499 mg/dL, Very high Performed By: #### C BCDIF, AHCV1B, BMP, LIPNF, TSH, HIV12C #### [id number] [place], [place] [id number] VLDL Cholesterol, NF 10 mg/dL Normal <30 [facility] Comment on above: Performed By: #### C BCDIF, AHCV1B, BMP, LIPNF, TSH, HIV12C #### [facility] [address] [place], [place] [address] TSHon 01-26-2021 TSH Qn 2.070 m[IU]/L Normal 0.270-4.200 [facility] Comment on above: Result Comment: If t he patient is , TSH reference range varies by gestational period: First Trimester (weeks 9-12): 0.180-2.990 mcIU/mL Second Trimester: 0.110-3.980 mcIU/mL Third Trimester: 0.480-4.710 mcIU/mL Javi Sanchez et al. A Practical Approach for the Verifications and Determination of Site- and Trimester-Specific Reference Intervals for Thyroid Function tests in . Thyroid, 2019:29:3:412-420. Irvin Shah, et al. 2017 Guidelines of the [place] Thyroid Association for the Diagnosis and Management of Thyroid Disease during and the . Thyroid, 2017:27:3:315-389. Performed By: #### C BCDIF, AHCV1B, BMP, LIPNF, TSH, HIV12C #### [facility] [address] [place], [place] [address] Encounters Encounter Date Encounter Type Care Provider Facility Start: 09-15-2024 End: 09-15-2024 Emergency department patient visit Sanjay Oshea Facility:[facility] Payers Date Payer Category Payer Self-pay 2024 Unknown [id number] Unknown [id number] Progress note 04-26-2021 Note Date & Type Note Facility 04-26-2021 Note HNO ID: [id number] Author: Tank Rocha APRN.JIG BORER Service: ? Author Type: Nurse Practitioner Type: Progress Notes Filed: 04/26/2021 11:31 AM Note Text: Patient was scheduled today for a new patient evaluation. She did not come to this appointment. We attempted to call the patient a response or confirmation from her regarding the appointment. [facility] Progress note 04-10-2021 Note Date & Type Note Facility 04-10-2021 Note HNO ID: [id number] Author: Evita Estrada, DO Service: ? Author Type: Physician Type: Progress Notes Filed: 04/17/2021 10:42 PM Note Text: VASCULAR SURGERY INITIAL CONSULT SERVICE DATE: 04/10/2021 SERVICE TIME: 10:22 AM PRIMARY CARE PHYSICIAN: Kieran Montesinos MD REFERRING PROVIDER: Mary Brandt [facility] [address] Consult requested for an opinion regarding the evaluation and treatment of the above. My final impression and recommendations will be communicated back to the requesting physician by way of the shared medical record or letter via US mail. CHIEF COMPLAINT/HISTORY OF PRESENT ILLNESS: Chief Complaint: Patient presents with: Consult: varicose veins History of Present Illness: Patient is a 25 year old White female presenting for consultation, evaluation and possible treatment of varicose veins, leg edema and leg pain. Patient reports bilateral aching, throbbing and heaviness. Predisposing factors include not significant. No specific history of injury or prior problems. Relieving factors include elevation of legs, reduced activity and OTC pain medication with mild improvement in symptoms. Patient denies DVT, phlebitis and treatment with blood thinners. Pain Assessment: PAIN EVALUATION 04/10/2021 1004 Pain Level: 10 Pain Location: Leg-Left Leg-right, bilateral feet Description: Throbbing;Numbness;Tingling Duration Amount of Time: 5 Duration Units: Months Frequency: Continuous Intervention/Comfort measure: Medication;Other: See comment;Cold Comments: topical hot/cold ointment Obstetric History T3 L3 SAB0 TAB0 Ectopic0 Multiple0 Live Births0 Name of Baby 1: Not recorded Date: Not recorded GA: Not recorded Delivery: Not recorded Apgar1: Not recorded Apgar5: Not recorded Living: Not recorded Name of Baby 2: Not recorded Date: Not recorded GA: Not recorded Delivery: Not recorded Apgar1: Not recorded Apgar5: Not recorded Living: Not recorded Name of Baby 3: Not recorded Date: Not recorded GA: Not recorded Delivery: Not recorded Apgar1: Not recorded Apgar5: Not recorded Living: Not recorded Duration of Symptoms: Progressive PREVIOUS TESTS: None PAST MEDICAL/SURGICAL/FAMILY/SOCIAL HISTORY PAST MEDICAL HISTORY Diagnosis Date - Generalized anxiety disorder - PTSD (post-traumatic stress disorder) - Recurrent major depressive disorder, in remission (HCC) - Varicose veins of both lower extremities with inflammation PAST SURGICAL HISTORY Procedure Laterality Date - LIGATE FALLOPIAN TUBE Bilateral 01/03/2016 - REMOVE TONSILS/ADENOIDS,<12 Y/O FAMILY HISTORY Problem Relation Age of Onset - Anxiety disorder Mother - Depression Mother - Post-Traumatic Stress Disorder Mother - Diabetes Father - Depression Sister - Anxiety disorder Sister - No Known Problems Maternal Grandmother - Lung Cancer Maternal Grandfather - Diabetes Paternal Grandmother - Diabetes Paternal Grandfather - Heart disease Paternal Grandfather - No Known Problems Brother SOCIAL HISTORY Social History Tobacco Use - Smoking status: Former Smoker Packs/day: 0.50 Years: 17.00 Pack years: 8.50 Types: Cigarettes Start date: 01/26/2010 Quit date: 12/26/2020 Years since quittin.2 - Smokeless tobacco: Never Used Vaping Use - Vaping Use: Never used Substance Use Topics - Alcohol use: Not Currently - Drug use: Not Currently MEDICATIONS/ALLERGIES Current Outpatient Medications Medication Sig Dispense Refill - mv-min/iron/folic/calcium/vitK (WOMEN'S MULTIVITAMIN ORAL) Take by mouth. - Fe gluconate/vit C/folic acid (IRON-C ORAL) Take by mouth. (Patient not taking: Reported on 04/10/2021 ) No current facility-administered medications for this visit. ALLERGIES No Known Allergies REVIEW OF SYSTEMS Constitutional: No weight loss, malaise or fevers. Respiratory: Negative for cough, wheezing, or shortness of breath Cardiovascular: Positive for leg swelling Gatrointestinal: Negative for abdominal discomfort, blood in stools or black stools or change in bowel habits Musculoskeletal: Positive for muscular weakness and muscle pain Endocrine: Negative for cold or heat intolerance, polyuria, polydipsia and goiter Integumentary: Negative for lesions, rash, and itching. PHYSICAL EXAM VITALS: BP 117/67 Pulse 83 Wt 197 lb (89.4kg) SpO2 96% General: Alert, oriented, cooperative, healthy appearance Integumentary: Normal color, no rash, no lesions. HEENT: EOM, pupils equal, round and reactive. Cardiovascular: Pulse regular. Lungs: No chest deformities or chest wall tenderness. Abdomen: Not examined Extremities: Edema, Varicose veins Neurological: AAOx3. Normal cognition and motor skills. Vascular: Dorsalis Pedal Right: Weak - Left: Weak ASSESSMENT Symptomatic varicose veins Leg pain Diagnostic tests reviewed for today's visit: Most recent labs Most recent imaging PLAN/RECOMMENDATI (more content not included)... [facility] Progress note 01-26-2021 Note Date & Type Note Facility 01-26-2021 Note HNO ID: [id number] Author: Mary Brandt APRN.JIG BORER Service: ? Author Type: Nurse Practitioner Type: Progress Notes Filed: 01/26/2021 8:18 AM Note Text: Chief Complaint Patient presents with: Establish Care HPI Shanita Ndiaye is a 25 year old female who presents here today for Above Complaints.. Patient here to establish care. Has not been under the care of a provider for a while. Mother of 3 children. History of depression, PTSD, anxiety. Has been on medication prior. Also discusses that she was diagnosed with borderline personality disorder in the past. About 4 years ago. Has had trouble with getting the right medications. Does not remember the names of the medications that worked or not worked. Discussing that she has a history of varicose veins. She has bilateral legs pain. She states that it hurts to walk. She states that her legs have been painful. She states that she started to take vitamins, which have kind of helped. She states that her iron was low in . Declining covid vaccine today, but she will think about it. Past medical history, appointments, medications, allergies reviewed. Previous Medical History PAST MEDICAL HISTORY Diagnosis Date - Generalized anxiety disorder - PTSD (post-traumatic stress disorder) - Recurrent major depressive disorder, in remission (HCC) - Varicose veins of both lower extremities with inflammation Previous Surgical History PAST SURGICAL HISTORY Procedure Laterality Date - LIGATE FALLOPIAN TUBE Bilateral 01/03/2016 - REMOVE TONSILS/ADENOIDS,<12 Y/O Family History FAMILY HISTORY Problem Relation Age of Onset - Anxiety disorder Mother - Depression Mother - Post-Traumatic Stress Disorder Mother - Diabetes Father - Depression Sister - Anxiety disorder Sister - No Known Problems Maternal Grandmother - Lung Cancer Maternal Grandfather - Diabetes Paternal Grandmother - Diabetes Paternal Grandfather - Heart disease Paternal Grandfather - No Known Problems Brother Patient Allergies ALLERGIES No Known Allergies Current Medications Current Outpatient Medications on File Prior to Visit Medication Sig - mv-min/iron/folic/calcium/vitK (WOMEN'S MULTIVITAMIN ORAL) Take by mouth. - Fe gluconate/vit C/folic acid (IRON-C ORAL) Take by mouth. No current facility-administered medications on file prior to visit. Social History Social History Tobacco Use - Smoking status: Former Smoker Packs/day: 0.50 Years: 17.00 Pack years: 8.50 Types: Cigarettes Start date: 01/26/2010 Quit date: 12/26/2020 Years since quittin.0 - Smokeless tobacco: Never Used Vaping Use - Vaping Use: Never used Substance Use Topics - Alcohol use: Not Currently - Drug use: Not Currently Review of Symptoms REVIEW OF SYSTEMS PAIN ASSESSMENT: CURRENTLY HAVING PAIN; see HPI GENERAL: No weight loss, malaise or fevers HEENT: Negative for frequent or significant headaches, No changes in hearing or vision, no nose bleeds or other nasal problems NECK: Negative for lumps, goiter, pain and significant neck swelling RESPIRATORY: Negative for cough, hemoptysis, wheezing, COPD, dyspnea or shortness of breath CARDIOVASCULAR: Negative for chest pain, leg swelling, hypertension, CHF or palpitations GI: No nausea, vomiting, or diarrhea : No history of dysuria, frequency or incontinence PSYCH: See HPI NEURO: No history of headaches, syncope, paralysis, seizures or tremors EXAM: BP 112/70 Pulse 82 Temp 36.9 ?C (98.5 ?F) (Left Tympanic) Resp 14 Ht 165 cm (5' 4.96) Wt 86.2 kg (190 lb) BMI 31.66 kg/m? General Appearance: Well appearing, alert, in no acute distress, well-hydrated, well nourished. Obese Skin: bilateral LE has small tortuose veins present. Head: Normocephalic, no masses, lesions, tenderness or abnormalities. Eyes: Anicteric sclera. Pupils are equally round and reactive to light. Extraocular movements are intact. . Ears: External ears normal, canals clear. Nose/Sinuses: Nares normal, septum midline, mucosa normal, no drainage or sinus tenderness. Oropharynx: Lips, mucosa, and tongue normal, teeth and gums normal, oropharynx normal. Neck: Supple, no adenopathy; thyroid symmetric, normal size Lungs: Lungs clear to auscultation. No wheezing, rhonchi, rales.. Heart: RRR without murmur, gallop, or rubs. No ectopy. Abdomen: Normal abdominal exam, Abdomen soft, non-tender. Bowel sounds normal. No masses, organomegaly. Extremities: Pulses: 2+, Edema: Non-pitting edema . Health Maintenance List COVID-19 VACCINE(1) Never done HEPATITIS C SCREENING Never done HIV SCREENING Never done DTAP,TDAP,TD(1 - Tdap) Never done PAP TESTING Never done INFLUENZA(Season Ended) due on 04/04/2021 DEPRESSION SCREENING due on 01/26/2022 [employer] Aged Out Data reviewed None available ASSESSMENT/PLAN: 1. Encounter to establish care - ICD9: V65.8, ICD10: Z76.89 (primary diagnosi (more content not included)... [facility] Summary Purpose Family History No Family History Records FoundNo Family History Records Found Advance Directives No Advanced Directives Records FoundNo Advanced Directives Records Found Additional Source Comments INFORMATION SOURCE (unrecogn ized section and content) DATE CREATED AUTHOR 09/05/2021 [facility] DATE CREATED AUTHOR AUTHOR'S ORGANIZ ATION 10/01/2024 [facility] FOR RECORDS PERTAINING TO PATIENTS WHO ARE OR HAVE BEEN ENROLLED IN A CHEMICAL DEPENDENCY/SUBSTANCEABUSE PROGRAM, SOME INFORMATION MAY BE OMITTED. This clinical summary was aggregated from multiple sources. Caution should be exercised in using it in the provision of clinical care. This summary normalizes information from multiple sources, and as a consequence, information in this document may materially change the coding, format and clinical context of patient data. In addition, data may be omitted in some cases. CLINICAL DECISIONS SHOULD BE BASED ON THE PRIMARY CLINICAL RECORDS. [employer] provides no warranty or guarantee of the accuracy or completeness of information in this document.
[2025-03-11] MEDS: Lidocaine 1% (20 ml mdv) 20 ML Vial 10 ML INFILT (22:48)
[2025-03-11] MEDS: Cefazolin 2 GM in 0.9% Normal Saline (100mL Bag) 100 ML IV (22:49)
[2025-03-12] MEDS: HYDROcodone Bitartrate/Apap 5/325 Tablet PO (00:51)
[2025-03-12 00:59] VITALS: BP 129/92; PULSE 64; RESP 18; TEMP 36.6; O2SAT 99
== END 2025-03-12 01:05 | disposition home or self-care (01) ==
PROVIDERS: Emergency Provider Emergency Medicine; Visit Provider Emergency Medicine
DX: S62.633B Displaced fracture of distal phalanx of left middle finger, initial encounter for open fracture (principal); X58.XXXA Exposure to other specified factors, initial encounter
CPT/HCPCS: 73130; 90715; 96374; 99284; A4216

== ENCOUNTER → 2025-07-06 | Outpatient (CLI) | payer MEDICAID, SELFPAY ==
[2025-07-06 12:23] LABS: Hematocrit 37.3 % (37-47); Hemoglobin 12.2 g/dL (12.0-15.0); Immature Granulocytes Count 0.020 X10^3/uL (0.0-0.0); Mean Corp Hgb Conc 32.7 g/dL (32-36); Mean Corpuscular Volume 91.4 fL (81-99); Mean Platelet Vol. 9.3 fl (6.2-12.0); NRBC Flagged by Analyzer 0 % (0-5); Platelet Count 300 K/mm3 (150-450); RBC Distribution Width CV 13.0 % (11.6-14.6); RBC Distribution Width SD 43.6 fl (35.1-43.9); Red Blood Count 4.08 M/mm3 (4.2-5.4); White Blood Count 5.9 K/mm3 (4.4-11.0)
[2025-07-06 13:21] LABS: AST(SGOT) 17 U/L (<=31); Alanine Aminotransfer ALT/SGPT 12 U/L (<=34); Albumin, Serum 4.3 g/dL (3.5-5.0); Alkaline Phosphatase 72 U/L (35-104); Anion Gap 9 (5-15); BUN 11 mg/dL (4-19); BUN/Creat Ratio 19.4 RATIO (10-20); Calcium,Total 9.5 mg/dL (7.6-11.0); Carbon Dioxide 28.7 mmol/L (21.0-32.0); Chloride 102 mmol/L (98-108); Cholesterol 172 mg/dL (<=200); Ferritin 109 ng/mL (22-378); Globulin 3.2 g/dL (2.2-4.2); Glucose 78 mg/dL (70-99); Low Density Lipoprotein Calc. 85 mg/dL; Potassium 4.2 mmol/L (3.3-5.1); Triglycerides 66 mg/dL; Very Low Density Lipoprotein 13 mg/dL (5-40); Vitamin B12 914 pg/mL (180-914); Vitamin D,25 Hydroxy 17.0 ng/mL (30-100); cholesterol:hdl ratio screen 2.32
[2025-07-06 14:24] LABS: FOLATES,SERUM (FOLIC ACID) 8.89 ng/mL (4.60-34.80)
[2025-07-06 15:38] LABS: Iron 90 ug/dL (50-170); Iron Binding Capacity,Total 280 ug/dL (250-450); Iron Binding Capacity,Unsat 190 ug/dL (228-428)
== END | disposition home or self-care (01) ==
LOC: VSLAB 09:34
PROVIDERS: PCP Nurse Practitioner Family; Referring Provider Nurse Practitioner Family; Visit Provider Nurse Practitioner Family
DX: Z13.1 Encounter for screening for diabetes mellitus (principal); Z13.220 Encounter for screening for lipoid disorders; R20.2 Paresthesia of skin; R53.83 Other fatigue
CPT/HCPCS: 36415; 80053; 80061; 82306; 82607; 82728; 82746; 83036; 83540; 83550; 84439; 84443; 85025